=== PATIENT | female | born 1945 | race Caucasian/White ===

== ENCOUNTER → 2016-05-11 | Outpatient (CLI) | payer OTHER ==
--- NOTE | 2016-05-11 16:16 | KCIC ---
Facial bones three views Indication: Fall injuring the left cheek with swelling and contusion. Time of exam 3:56 p.m. Both maxillary sinuses are well aerated. No air-fluid levels are seen. No intraorbital gas is detected. The zygomatic arches are without evidence of displaced fracture. The mandible appears intact. No fractures are seen. Impression: No definite facial bone fractures is identified. If there is continued concern for facial bone fracture, CT of the facial bones would be recommended. Electronically signed by: Darío Balbuena MD (May 11, 2016 16:15:13)
== END | disposition home or self-care (01) ==
LOC: KCIC 15:45
PROVIDERS: ATTEND Family Medicine
DX: S09.93XA Unspecified injury of face, initial encounter (principal); R22.0 Localized swelling, mass and lump, head; S00.83XA Contusion of other part of head, initial encounter; W19.XXXA Unspecified fall, initial encounter; Y93.89 Activity, other specified; Y92.89 Other specified places as the place of occurrence of the external cause; Y99.8 Other external cause status
CPT/HCPCS: 70150

== ENCOUNTER → 2019-03-27 | Outpatient (CLI) | payer MEDICARE, OTHER ==
--- NOTE | 2019-03-27 09:29 | KCIC ---
ABDOMEN LTD History: Left upper quadrant lump Comparison: None FINDINGS: Multiple sonographic images directed toward the site of palpable concern in the left upper abdomen are submitted. In the area of concern, there is hernia present with estimated defect at the neck about 1.6 cm. Hernia sac is estimated about 3.2 x 2.3 x 1.2 cm. No internal peristalsis was identified in the hernia sac during the exam. There is minimal fluid in the hernia sac about the herniated contents. Impression: 1. Site of concern in the left upper abdomen corresponds with hernia, minimal fluid about the herniated contents. No definitive peristalsis was identified to confidently suggest presence of internal bowel. Electronically signed by: Kvng Sandoval MD (03/27/2019 9:26 AM) [id number]
== END | disposition home or self-care (01) ==
LOC: KCIC US 07:40
PROVIDERS: ATTEND Family Medicine
DX: K46.9 Unspecified abdominal hernia without obstruction or gangrene (principal)
CPT/HCPCS: 76705

== ENCOUNTER 2019-04-20 06:33 | Day surgery (SDC) | payer MEDICARE ==
[~2019-04-20] VITALS: Ht 170.7 cm; Wt 82.5 kg
[~2019-04-20 06:33] MED LIST: ATOR10TA60 PO; CALC500T31 PO; CETI-161 PO; FERR-36 PO; LISI1TAB23 PO; MV-M1TAB66 PO
[2019-04-20] MEDS ORDERED: PROPOFOL 20 ML IV ONE (06:52)
[2019-04-20] MEDS ORDERED: LIDOCAINE 2% PF 5 ML VIAL. ONE (06:52)
[2019-04-20] MEDS ORDERED: ROCURONIUM 50 MG/5 ML VIAL. ONE (06:52)
[2019-04-20] MEDS ORDERED: DEXAMETHASONE SOD PHOS 4 MG/ML VIAL ONE (06:52)
[2019-04-20] MEDS ORDERED: ONDANSETRON PF 4 MG/2 ML VIAL. ONE (06:52)
[2019-04-20] MEDS ORDERED: IV RINGERS,LACTATED 1000ML 1,000 ML IV SCH (07:00)
[2019-04-20] MEDS ORDERED: PROCHLORPERAZINE 10 MG/2 ML VIAL. IV PRN (07:00)
[2019-04-20] MEDS ORDERED: LIDOCAINE 1% PF 2 ML VIAL. ID PRN (07:00)
[2019-04-20] MEDS ORDERED: MORPHINE SULFATE 2 MG/ML VIAL. IV PRN (07:00)
[2019-04-20] MEDS ORDERED: ONDANSETRON PF 4 MG/2 ML VIAL. IV PRN (07:00)
[2019-04-20] MEDS ORDERED: fentaNYL PF VIAL 100 MCG/2 ML VIAL IV PRN (07:00)
[2019-04-20] MEDS ORDERED: HYDROmorphone 2 MG/ML VIAL IV PRN (07:00)
[2019-04-20] MEDS ORDERED: BUPIVACAINE-EPI 0.5%-1:200000 MPF 30 ML VIAL. ONE (07:11)
[2019-04-20] MEDS ORDERED: VANCOMYCIN 1GM IVPB FOR OMNI 250 ML IV PRN (08:00)
[2019-04-20] MEDS ORDERED: fentaNYL PF VIAL 100 MCG/2 ML VIAL ONE ×2 (08:17→09:08)
[2019-04-20] MEDS ORDERED: NEOSTIGMINE METHYLSULFATE 5 MG/5 ML SYRINGE. ONE (08:48)
[2019-04-20] MEDS ORDERED: GLYCOPYRROLATE 1 MG/5 ML VIAL. ONE (08:48)
[2019-04-20] MEDS ORDERED: SEVOFLURANE 31 TO 60 MINUTES. IH ONE (08:50)
[2019-04-20] MEDS ORDERED: PHENYLEPHRINE in 0.9% NACL PF 1 MG/10 ML SYRINGE. IV ONE (08:54)
[2019-04-20] MEDS: fentaNYL PF VIAL 100 MCG/2 ML VIAL IV PRN ×2 (09:00→09:30)
[2019-04-20] MEDS ORDERED: HYDR-3164 PO (09:23)
--- NOTE | 2019-04-20 09:28 | DISCH ---
DISCHARGE INSTRUCTIONS Condition on Discharge Condition on Discharge: Stable Activity After Discharge Activity Instructions for Disc: Resume previous activity, Activity as tolerated Driving Instructions after Dis: Do not drive (3-4 days) Diet after Discharge Diet after Discharge: Regular Wound Incision Care Wound/Incision Care: Ice to area for comfort Follow-Up Follow up with: Dima next week KASSIE GIL MD Apr 20, 2019 09:28
[2019-04-20] MEDS ORDERED: HYDROcodone/APAP 5/325MG 1 TAB TABLET PO ONE (09:30)
--- NOTE | 2019-04-20 09:30 | PDOC ---
BRIEF OPERATIVE NOTE Date: Apr 20, 2019 Pre-Op Diagnosis LUQ abdominal hernia Post-Op Diagnosis same Procedure Performed primary repair Surgeon Dima BRAGA Anesthesia Type: General Blood Loss 5cc IV Fluid 500cc Specimens Obtained hernia sack and incarcerated contents Findings small defect with incarcerated fat Complications none KASSIE GIL MD Apr 20, 2019 09:30
[2019-04-20 10:00] VITALS: BP 129/72
--- NOTE | 2019-04-20 16:57 | OP ---
DATE OF SURGERY: 04/20/2019 PREOPERATIVE DIAGNOSIS: Left upper quadrant abdominal wall hernia. POSTOPERATIVE DIAGNOSIS: Left upper quadrant abdominal wall hernia. PROCEDURE: Primary repair. SURGEON: Dre Gil MD ECONOMIC MANAGER: MARIA LUZ Fernando ANESTHESIA: General endotracheal. ESTIMATED BLOOD LOSS: 5 mL. INTRAVENOUS FLUIDS: 500 mL. DESCRIPTION OF PROCEDURE: The patient brought to the operating suite, given a general anesthetic and the left upper quadrant of the abdomen was prepped and draped in usual sterile fashion. The area of concern, which had been marked in the preoperative area with the patient's assistance, correlated with a previous laparoscopic port site. The area was infiltrated with local anesthetic, incised and dissection carried down to the anterior sheath, where a small defect had allowed protrusion of some preperitoneal fat and omentum. Omentum was reduced. Hernia sac and fat excised, small defect closed with interrupted inverted 0 PDS x 2. 0 Vicryl was used to run a second row of repair over the initial sutures and good hemostasis was present. When a correct sponge count was obtained, the wound was closed with interrupted inverted 3-0 Vicryl in the subcutaneous tissue, subcuticular 4-0 Monocryl, Xeroform and dressing placed. The patient awakened from her anesthetic and taken to the recovery room in satisfactory condition. DRE GIL MD DR: DORA/belkis JOB#: [id number] / [id number]
--- NOTE | 2019-04-21 17:06 | PATHOLOGY ---
[facility] Accession Number: [id number] . 01 Material submitted: . hernia - HERNIA SAC AND CONTENTS . 01 Clinical history: . Left upper quadrant abdominal hernia . 02 Diagnosis: Segment of focal mesothelial-lined fibromembranous and fibroadipose tissue, left upper quadrant abdominal hernia repair: - Hernia sac showing focal submesothelial reactive fibrosis and chronic inflammation. . (JPM:mm; 04/21/2019) [facility] 04/21/2019 1314 Local . 02 Electronically signed: . Thomas Art MD, Pathologist NPI- [id number] . 01 Gross description: . The specimen is received in formalin, labeled "Aliza Andreia, hernia sac and contents". Received is a segment of fibroadipose tissue measuring 5.2 x 4.2 x 2.1 cm in greatest dimensions. No distinct nodules or lesions are noted grossly. The specimen is submitted representatively in cassette A1. ([facility]; 04/20/2019) QA/[facility] 04/20/2019 1713 Local . 02 Pathologist provided ICD-10: K44.9 . 02 CPT . 609183 Specimen Comment: A courtesy copy of this report has been sent to [phone], [phone] Specimen Comment: [id number] Specimen Comment: Report sent to / DR CLOUD Performed at: 01 [facility] [address], [place] [id number] MD Juancho Price MD Phone: [phone] Performed at: 02 [facility] [address] [place], [place] [id number] MD Thomas Art MD Phone: [phone]
== END 2019-04-20 10:35 | disposition home or self-care (01) ==
LOC: SURG 06:33
PROVIDERS: ATTEND Surgery
DX: K46.9 Unspecified abdominal hernia without obstruction or gangrene (principal); I10 Essential (primary) hypertension; E78.00 Pure hypercholesterolemia, unspecified; D64.9 Anemia, unspecified; E66.9 Obesity, unspecified; Z68.28 Body mass index [BMI] 28.0-28.9, adult; Z87.891 Personal history of nicotine dependence; Z90.710 Acquired absence of both cervix and uterus; Z98.84 Bariatric surgery status; Z90.721 Acquired absence of ovaries, unilateral; Z72.89 Other problems related to lifestyle
CPT/HCPCS: 49560; A7015; J1100; J2001; J2370; J2405; J2704; J2710; J3010; J3370; J3490

== ENCOUNTER → 2020-05-24 | Outpatient (CLI) | payer MEDICARE ==
[~2020-05-24] MED LIST changes: +HYDR-3164 PO
--- NOTE | 2020-05-24 16:57 | KCIC ---
MRI STUDY OF THE LEFT SHOULDER WITHOUT CONTRAST Clinical indications: Left shoulder pain with limited range of motion for 2 months after repetitive u se. TECHNIQUE: Noncontrast MRI sequences of left shoulder were performed in all 3 planes. COMPARISON: Left shoulder radiographic study dated May 19, 2020. FINDINGS: There is a large complete tear of the rotator cuff involving the supraspinatus tendon and p art of the infraspinatus tendon. The supraspinatus tendon is retracted medially situated over the sup erior aspect of the humeral head. Therefore the defect measures over 3 cm in transverse dimension. Th is results in superior subluxation of the humeral head with respect to the glenoid fossa. There is te ndinosis of the subscapularis tendon. There is a tear of the superior-lateral aspect of the subscapul steve tendon at the attachment to the lesser tubercle including the transverse ligament attachment whi ch results in medial subluxation of the tendon long of the biceps within the upper bicipital groove o tari the lesser tubercle. There is tendinosis and partial longitudinal split tear of this portion of t he tendon of the long of the biceps. The intra-articular portion is intact. There is mild atrophy of the supraspinatus and infraspinatus muscles. There is moderate degenerative osteoarthritis and spurri ng of the AC joint. There is spurring of the lateral inferior edge of the acromial process. These fin dings may impinge the acromial humeral space. Type I acromial process is seen. There is moderate cooker process cheese caroline erosion and irregularity of the lateral aspect of the humeral head secondary to chronic impingeme nt. No fracture or marrow infiltrative process is seen. There is moderate chondromalacia and degener ative spurring of the glenohumeral joint. There is a moderate-sized glenohumeral joint effusion witho ut loose body. Fluid is seen within the subacromial and subdeltoid bursa as a result of large complet e rotator cuff tear. There is a prominent articular cartilage defect of the inferior aspect of the gl enoid fossa. Superior aspect of the glenoid labrum is attenuated but no other glenoid labral tear is seen. No paralabral ganglion cyst or spinoglenoid notch ganglion cyst is seen. IMPRESSION: Large complete rotator cuff tear of the left shoulder. Impingement of the acromial randall l space. Tear of the superior lateral aspect of the subscapularis tendon attachment to the lesser tubercle inc luding the transverse ligament attachment which allows medial subluxation of the upper bicipital groo ve portion of the tendon of the long of the biceps overriding the lesser tubercle. There is tendinosi s and partial longitudinal split tear of this portion of the biceps tendon. 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 Focal articular ca rtilage defect of the inferior aspect of the glenoid fossa. Degenerative attenuation of the superior aspect of the glenoid labrum. Electronically signed by: Osiel Norman MD (05/24/2020 4:54 PM) [id number]
== END ==
LOC: KCIC MRI 09:14
PROVIDERS: ATTEND Orthopaedic Surgery
DX: M75.122 Complete rotator cuff tear or rupture of left shoulder, not specified as traumatic (principal); M19.012 Primary osteoarthritis, left shoulder; M94.212 Chondromalacia, left shoulder; M25.412 Effusion, left shoulder; M77.8 Other enthesopathies, not elsewhere classified; M75.42 Impingement syndrome of left shoulder; M25.812 Other specified joint disorders, left shoulder
CPT/HCPCS: 73221

== ENCOUNTER → 2020-10-19 | Outpatient (CLI) | payer MEDICARE ==
--- NOTE | 2020-10-19 17:51 | KCIC ---
EXAM: XR RIBS MIN 3 VIEWS RT W/PA CHEST 10/19/2020 12:34 PM CLINICAL INDICATION: Right rib pain, fell on a bench 10/14/2020 COMPARISON: None TECHNIQUE: PA view of the chest and AP and oblique views of the right ribs. FINDINGS: There are acute displaced fractures of the right eighth and ninth ribs. Both ribs are frac tured in 2 places, posteriorly and laterally. No definite other fracture identified. No pneumothorax. There is a small right and possible small left pleural effusion. The heart is normal in size. There are calcifications in the thoracic aorta. IMPRESSION: 1. Acute displaced fractures of the right eighth and ninth ribs, both fractured posteriorly and later ally. No pneumothorax. 2. Small right pleural effusion. Possible small left pleural effusion. Electronically signed by: Gisele Garcia MD (10/19/2020 5:48 PM) [id number]
== END ==
LOC: KCIC 12:30
PROVIDERS: ATTEND Nurse Practitioner
DX: S22.41XA Multiple fractures of ribs, right side, initial encounter for closed fracture (principal); J90 Pleural effusion, not elsewhere classified; W19.XXXA Unspecified fall, initial encounter; Y93.89 Activity, other specified; Y92.89 Other specified places as the place of occurrence of the external cause; Y99.8 Other external cause status
CPT/HCPCS: 71101